=== PATIENT | male | born 1980 | race Caucasian/White ===

== ENCOUNTER 2018-04-09 12:01 | Emergency (ER) | payer MEDICAID ==
[2018-04-09 12:07] VITALS: BP 143/87
--- NOTE | 2018-04-09 12:18 | EDPHY ---
H & P Stated Complaint: etoh withdrawal/needs librium sent from [facility] Time Seen by Provider: 04/09/18 12:17 - Personal History Current Tetanus Diphtheria and Acellular Pertussis (TDAP): Yes - Medical/Surgical History Hx Asthma: No Hx Chronic Respiratory Disease: No Hx Diabetes: No Hx Cardiac Disease: No Hx Renal Disease: No Hx Cirrhosis: No Hx Alcoholism: Yes Hx HIV/AIDS: No Hx Splenectomy or Spleen Trauma: No Other PMH: etoh/seizures - Social History Smoking Status: Current every day smoker Constitutional: Initial Vital Signs Temperature (C) 36.8 C 04/09/18 12:05 Heart Rate 73 04/09/18 12:05 Respiratory Rate 20 04/09/18 12:05 Blood Pressure 143/87 H 04/09/18 12:05 O2 Sat (%) 99 04/09/18 12:05 O2 Delivery Mode Room Air Allergies/Adverse Reactions: No Known Allergies Allergy (Verified 04/09/18 12:04) Home Medications: Medication Instructions Recorded NO HOME MEDS 08/08/10 Medical Decision Making ED Course/Re-evaluation: CHIEF COMPLAINT: Alcohol withdrawal HISTORY OF PRESENT ILLNESS: The patient is a 37 y/o male, chronic alcoholic living on [address] Patient drinks on a daily basis and obtains whatever alcohol is available. [facility] for [facility]. He last drank alcohol prior to arriving to the [facility]. 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 Patient denies any injuries denies loss of consciousness denies any recent trauma. Patient denies coingestion patient denies suicidal or homicidal behavior. Denies headache, chest pain, shortness of breath, abdominal pain, numbness, paresthesias. REVIEW OF SYSTEMS: A 10 point review of systems was performed and is negative with the exception of the elements mentioned in the history of present illness. PHYSICAL EXAM: HR, BP, O2 Sat, RR. Temp noted General Appearance: Alert, well hydrated, appropriate, and non-toxic appearing. Head: Atraumatic without scalp tenderness or obvious injury Eyes: Pupils equal, round, reactive to light and accommodation, EOMI, no trauma , no injection. Ears: Clear bilaterally, no perforation, normal landmarks Nose: Atraumatic, no rhinorrhea, clear. Throat: There is no erythema or exudates, no lesions, normal tonsils, mucus membranes moist. Neck: Supple, nontender, no lymphadenopathy. Respiratory: No retractions, no distress, no wheezes, and no accessory muscle use. Lungs are clear to auscultation bilaterally. Cardiovascular: Regular rate and rhythm, no murmurs, rubs, or gallops. Bilateral carotid, radial, dorsalis pedis, and posterior tibial pulses intact. Good capillary refill all extremities. Gastrointestinal: Abdomen is soft, nontender, non-distended, no masses, no rebound, no guarding, no peritoneal signs. Musculoskeletal: Normal active ROM of all extremities, atraumatic. Neurological: Alert, appropriate, and interactive. The patient has normal DTRs and non-focal cranial nerves, motor, sensory, and cerebellar exam. Skin: No rashes, good turgor, no nodules on palpation. Past medical history: Alcoholism, alcohol withdrawal seizures Past surgical history: Denies Family history: Denies Social history: Single, not employed, transient DIFFERENTIAL DIAGNOSIS: The differential diagnosis for the patient's withdrawal symptoms included but was not limited to alcohol withdrawal, functional and major depression, situational depression, medication side effect, drugs, and alcohol abuse. 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 I serially examined this patient since the patient's arrival here in the emergency department. Laboratory and imaging studies are not indicated at this time. 50 mg PO Librium administered. I serially questioned the patient and the patient's story given initially has not changed. The patient still denies any trauma, any head injury, and any illicit drug use. We're discharging the patient to the [facility] in stable condition with a pre-pack of Librium. Departure - Departure Disposition: Home, Routine, Self-Care Clinical Impression: Alcoholic intoxication Qualifiers: Complication of substance-induced condition: uncomplicated Qualified Code(s): F10.920 - Alcohol use, unspecified with intoxication, uncomplicated Alcohol withdrawal Qualifiers: Complication of substance-induced condition: uncomplicated Qualified Code(s): F10.230 - Alcohol dependence with withdrawal, uncomplicated Condition: Good Instructions: Alcohol Intoxication (ED), Abuse of Alcohol (ED), Alcohol Withdrawal (ED) Additional Instructions: 1. Take Librium as prescribed and return to the [facility]. 2. Please refrain from abusing alcohol. 3. Return to the emergency department immediately for fever, vomiting, confusion , headache, abdominal pain or other worsening of condition. 4. Followup with your primary care physician within 72 hours for reevaluation. Referrals: [facility],. [Clinic] - As per Instructions [facility] 24 Hours [Outside] - As per Instructions Report Scribed for: Blaise Castillo Report Scribed by: Sweetie Mejia Date of Report: 04/09/18 Time of Report: 12:20
[2018-04-09] MEDS ORDERED: chlordiazePOXIDE 25 MG CAP PO ONE (12:21)
[2018-04-09] MEDS ORDERED: CHLORDIAZEPOXIDE 25MG PREPK#6 BTL TAKEHOME ONE (12:21)
== END 2018-04-09 12:40 | disposition home or self-care (01) ==
DX: F10.230 Alcohol dependence with withdrawal, uncomplicated (principal); F17.200 Nicotine dependence, unspecified, uncomplicated